=== PATIENT | male | born 1950 | race Two or more races ===

== ENCOUNTER 2022-09-21 06:54 | Day surgery (SDC) | payer OTHER ==
[2022-09-21] VITALS (9 sets, daily range): BP systolic 122–139; BP diastolic 69–76
[~2022-09-21] VITALS: Ht 167.6 cm; Wt 77.1 kg
[~2022-09-21 06:54] MED LIST: CARV6.2551 PO; FURO20TA3 PO; GABA100C9 PO; SACU1TAB7 PO
[2022-09-21] MEDS ORDERED: MIDAZOLAM HCL 2MG/2ML 2ml VIAL (1mg/ml) ONE (07:47)
[2022-09-21] MEDS ORDERED: VANCOMYCIN HCL 1000 MG VL ONE (07:47)
[2022-09-21] MEDS ORDERED: fentaNYL CITRATE 100 MCG/2 ML VL ONE (07:47)
[2022-09-21] MEDS ORDERED: LIDOCAINE 2%HCL (LOCAL ANESTH.) INJ 10ml MDV ONE (07:48)
[2022-09-21] MEDS ORDERED: DAPTOMYCIN 500 MG IV STA (07:48)
[2022-09-21] MEDS ORDERED: DAPTOMYCIN 500 MG IR ONE (08:00)
[2022-09-21] MEDS ORDERED: DAPTOMYCIN IV ONE ×4 (10:00)
[2022-09-21] MEDS ORDERED: SODIUM CHL 0.9% IV ONE ×4 (10:00)
[2022-09-21] MEDS ORDERED: DOXYCYCLINE 100 MG TAB/CAP PO ONE (13:30)
[2022-09-21] MEDS ORDERED: DOXYCYCLINE 100 MG TAB/CAP ONE (13:49)
== END 2022-09-21 14:33 | disposition home or self-care (01) ==
LOC: CATH 06:54
PROVIDERS: ATTEND Specialist
DX: Z45.02 Encounter for adjustment and management of automatic implantable cardiac defibrillator (principal); I42.9 Cardiomyopathy, unspecified; Z20.822 Contact with and (suspected) exposure to COVID-19; I11.0 Hypertensive heart disease with heart failure; I50.9 Heart failure, unspecified; Z79.899 Other long term (current) drug therapy
CPT/HCPCS: 33264; C1882; J0878; J2001; J2250; J3010; J7050; U0003; 99152; 99153

== ENCOUNTER 2023-06-10 14:11 | Emergency (ER) | payer OTHER, MEDICAID ==
[~2023-06-10] VITALS: Ht 170.2 cm; Wt 79.5 kg
[2023-06-10 14:11] VITALS: BP 81/53; RESP 16; O2SAT 96
[~2023-06-10 14:11] MED LIST changes: +GABA-1308 PO; -GABA100C9 PO
[2023-06-10 15:11] LABS: Basophils # (auto) 0 10 ^3/uL (0-0.2); Eosinophils # (auto) 0.1 10 ^3/uL (0-0.8); Hemoglobin 14.5 g/dL (13.5-17.5); Mean Corpuscular Hemoglobin 36.1 pg (28.0-32.0); Nucleated Red Blood Cells % 0.2 %
[2023-06-10 15:16] LABS: Alanine Aminotransferase 23 U/L (7-40); Albumin 3.4 g/dL (3.2-4.8); Alkaline Phosphatase 41 U/L (46-116); Anion Gap 6.8 (5-15); Aspartate Aminotransferase 40 U/L (13-40); BUN/Creatinine Ratio 10.6 (10.0-20.0); Basophils % (auto) 0.7 % (0.0-2.0); Bilirubin, Total 1.2 mg/dL (0.2-1.0); Blood Urea Nitrogen 9 mg/dL (9-23); Calcium 8.8 mg/dL (8.5-10.1); Carbon Dioxide 22.2 mmol/L (20-30); Chloride 103 mmol/L (98-107); Eosinophils % (auto) 0.8 % (0.0-7.0); Glucose 141 mg/dL (74-106); Hematocrit 43.3 % (41.0-53.0); Lymphocytes # (auto) 1.4 10 ^3/uL (0.4-5.4); Lymphocytes % (auto) 20.8 % (10.0-50.0); Mean Corpuscular Hgb Conc. 33.5 g/dL (32.0-36.0); Mean Corpuscular Volume 107.8 fL (80.0-100.0); Monocytes # (auto) 0.8 10 ^3/uL (0-1.3); Monocytes % (auto) 11.3 % (0.0-12.0); Neutrophils # (auto) 4.5 10 ^3/uL (1.6-8.6); Neutrophils % (auto) 66.4 % (37.0-80.0); Potassium 4.6 mmol/L (3.5-5.1); Red Blood Cells 4.02 10^6/uL (4.5-5.90); Red Cell Distribution Width 15.4 % (11.8-14.3); Sodium 132 mmol/L (136-145); White Blood Cell 6.7 10^3/uL (4.4-10.8)
[2023-06-10] MEDS ORDERED: TETRACAINE HCL 0.5% OPTH(EYE) SOLN 4ML RIGHTEYE ONE (20:45)
[2023-06-10 20:58] VITALS: PULSE 80
== END 2023-06-10 21:28 | disposition left against medical advice (07) ==
LOC: ER 14:11
DX: E86.0 Dehydration (principal); E87.1 Hypo-osmolality and hyponatremia; R73.9 Hyperglycemia, unspecified; R42 Dizziness and giddiness; R55 Syncope and collapse; R53.1 Weakness; I11.0 Hypertensive heart disease with heart failure; I50.9 Heart failure, unspecified
CPT/HCPCS: 36415; 71045; 80053; 84484; 85025; 93005